=== PATIENT | female | born 1970 | race Hispanic/Latino ===

== ENCOUNTER 2017-10-16 21:18 | Emergency (ER) | payer BC ==
[2017-10-16] MEDS ORDERED: ACETAMINOPHEN-CODEINE ELIXIR 5 ML UDCUP ONE (22:23)
[2017-10-16] MEDS ORDERED: ONDANSETRON ODT 4 MG TAB ONE (22:23)
[2017-10-16 22:32] LABS: BASOPHILS % (AUTO) 0.5 % (0.0-5.0); EOSINOPHILS % (AUTO) 1.6 % (0.0-8.0); HEMATOCRIT 33.1 % (36-48); LYMPHOCYTES % (AUTO) 23.4 % (21.0-51.0); MEAN CORPUSCULAR HEMOGLOBIN 24.8 pg (27.0-33.0); MEAN CORPUSCULAR HGB CONC 32.7 g/dL (32.0-36.0); MEAN CORPUSCULAR VOLUME 75.8 fL (79-99); MONOCYTES % (AUTO) 8.2 % (3.0-13.0); NEUTROPHILS % (AUTO) 66.3 % (40.0-77.0); PLATELET COUNT (AUTO) 450 K/uL (130-400); RED BLOOD CELL COUNT(AUTO) 4.37 MIL/uL (4.00-5.50); RED CELL DISTRIBUTION WIDTH 18.4 % (11.0-15.5); WHITE BLOOD COUNT (AUTO) 8.9 K/uL (4.8-10.8)
[2017-10-16] MEDS ORDERED: 0.9% SODIUM CHLORIDE 1000 ML IV BAG IV ONE ×2 (22:34→23:38)
[2017-10-16 22:36] LABS: CREATININE 0.8 mg/dL (0.5-1.5); POTASSIUM 3.6 mmol/L (3.5-5.1)
[2017-10-16 22:40] LABS: ALBUMIN 3.7 g/dL (3.5-5.0); BILIRUBIN,TOTAL 0.2 mg/dL (0.2-1.0); TOTAL PROTEIN, SERUM 7.8 g/dL (6.0-8.3)
[2017-10-16] MEDS ORDERED: IOPAMIDOL-370 75 ML VIAL IV ONE (23:08)
== END 2017-10-17 00:10 | disposition home or self-care (01) ==
LOC: EDH 21:18
DX: K52.9 Noninfective gastroenteritis and colitis, unspecified (principal); R11.2 Nausea with vomiting, unspecified; R51 Headache; M54.2 Cervicalgia; E07.9 Disorder of thyroid, unspecified; Z98.51 Tubal ligation status; Z98.890 Other specified postprocedural states; Z88.8 Allergy status to other drugs, medicaments and biological substances
CPT/HCPCS: 36415; 74177; 80053; 83605; 83690; 85025; 96360; 99285; J7030 ×2; Q9967

== ENCOUNTER → 2024-01-01 | Outpatient (CLI) | payer BC | END | disposition home or self-care (01) | LOC: RAH 15:45 | PROVIDERS: ATTEND Internal Medicine | DX: S92.514A Nondisplaced fracture of proximal phalanx of right lesser toe(s), initial encounter for closed fracture (principal); M79.674 Pain in right toe(s); R93.429 Abnormal radiologic findings on diagnostic imaging of unspecified kidney; X58.XXXA Exposure to other specified factors, initial encounter; Y93.89 Activity, other specified; Y92.89 Other specified places as the place of occurrence of the external cause; Y99.8 Other external cause status | CPT/HCPCS: 73660 ==

== ENCOUNTER → 2025-01-18 | Outpatient (CLI) | payer BC ==
--- NOTE | 2025-01-19 03:52 | HMCIMG ---
EXAM: CR Lumbar Spine, 3 views CLINICAL HISTORY: Pain. COMPARISON: None provided. FINDINGS: Partial sacralization of the L5 with significantly reduced L5-S1 intervertebral disc space. Mild osteopenia. Mild spondylosis is evident by marginal osteophytes and facet arthropathy at multiple levels. No spondylolisthesis. Normal vertebral body heights. No acute fracture. Atherosclerotic vascular calcification is present. Pelvic phleboliths. Surgical clips in the right upper quadrant of the abdomen. A component of mild constipation is present in the colon. IMPRESSION: No acute bony abnormality is evident. Partial sacralization of the L5 with significantly reduced L5-S1 intervertebral disc space. Mild osteopenia. Mild spondylosis. /[place]
--- NOTE | 2025-01-19 07:10 | HMCIMG ---
EXAM: CR sacrum 3 views. CLINICAL HISTORY: Sacral pain. COMPARISON: None provided. FINDINGS: Partial sacralization of the L5 vertebra on the right side. Severe facet arthropathy at the L4-L5 level and mild facet arthropathy at the L5-S1 level. No evidence of any displaced fracture or aggressively appearing osseous lesion. Mild degenerative changes in the bilateral sacroiliac joint. The sacrococcygeal junction appears unremarkable. The soft tissues are unremarkable. Calcific densities in the pelvis with central lucency are probably phleboliths. IMPRESSION: 1. No acute osseous abnormality. No focal lesion in the sacrum. Mild degenerative changes in the bilateral sacroiliac joint. 2. Partial sacralization of the L5 vertebra on the right side. Severe facet arthropathy at the L4-L5 level and mild facet arthropathy at the L5-S1 level. /[place]
== END | disposition home or self-care (01) ==
LOC: RAH 13:28
PROVIDERS: ATTEND Internal Medicine
DX: S33.8XXA Sprain of other parts of lumbar spine and pelvis, initial encounter (principal); M47.26 Other spondylosis with radiculopathy, lumbar region; M47.817 Spondylosis without myelopathy or radiculopathy, lumbosacral region; M46.1 Sacroiliitis, not elsewhere classified; I87.8 Other specified disorders of veins; M85.88 Other specified disorders of bone density and structure, other site; M53.3 Sacrococcygeal disorders, not elsewhere classified; Q76.49 Other congenital malformations of spine, not associated with scoliosis; X58.XXXA Exposure to other specified factors, initial encounter; Y93.89 Activity, other specified; Y92.89 Other specified places as the place of occurrence of the external cause; Y99.8 Other external cause status
CPT/HCPCS: 72100; 72220